=== PATIENT | male | born 1970 | race Caucasian/White ===

== ENCOUNTER 2019-04-18 22:10 | Inpatient (IN) ==
[2019-04-18] MEDS ORDERED: ZOSYN 4.5 GM in NS 100 ML IV ONE (22:30)
[2019-04-18] MEDS ORDERED: VANCOMYCIN 1 GM/NS 1 GM/250 ML IVPB IV ONE (22:30)
[2019-04-18] MEDS ORDERED: TORADOL IV ONE (22:30)
[2019-04-18] MEDS ORDERED: NS 500 ML IV ONE (22:30)
[2019-04-18] MEDS ORDERED: NS 1,000 ML IV ONE ×2 (22:30)
[2019-04-18] MEDS ORDERED: HUMULIN R IV ONE (23:01)
[2019-04-18 23:14] LABS: ALLEN TEST YES; BE 2.5 mmoll (-3.0-3.0); BLOOD TYPE ARTERIAL; HCO3-(ACT) 26.7 mmoll (20.0-26.0); METHB 1.1 % (0.0-1.5); O2(CT) 19.5 mL/dL (15.0-23.0); O2HB 92.5 % (95.0-99.0); PCO2(98.6) 30 mmHg (35-45); PO2(98.6) 67 mmHg (60-100); SAMPLE BLOOD; SAO2 97.1 % (95.0-100.0); pH(98.6) 7.52 (7.35-7.45)
[2019-04-18 23:17] LABS: MODALITY ROOM AIR
[2019-04-18 23:24] LABS: BASO# 0.07 X1000 (0.0-0.2); BASO% 1.7 % (0.0-0.8); EOS# 0.02 X1000 (0.0-0.7); EOS% 0.5 % (0.0-10.0); HEMATOCRIT 41.2 % (42.0-52.0); HEMOGLOBIN 14.6 g/dL (14.0-18.0); INR 1.49; LYMPH# 1.05 X1000 (1.2-3.4); LYMPH% 24.9 % (20.5-51.1); MCH 28.3 PG (27-31); MCHC 35.4 g/dL (33-37); MONO% 9.5 % (1.7-9.3); MPV 12.9 FL (7.4-10.4); NEUT# 2.67 X1000 (1.4-6.5); NEUT% 63.4 % (42.2-75.2); PLT 108 X1000 (130-400); PROTIME 18.3 Seconds (11.0-16.0); RBC 5.15 XMIL (4.7-6.1); RDW 12.7 % (11.5-14.5); WBC 4.21 X1000 (4.8-10.8)
[2019-04-18 23:25] LABS: PTT 40.4 Seconds (22.3-41.8)
[2019-04-18 23:51] LABS: AGAP 13; ALB/GLOB RATIO 0.9; ALKALINE PHOSPHATASE 260 U/L (32-122); BUN 9 mg/dL (8-22); CALCIUM 7.3 mg/dL (8.8-10.2); CHLORIDE 89 mmol/L (98-107); CK PROFILE 280 U/L (24-204); COSMO 263; CREATININE 0.6 mg/dL (0.7-1.2); ESTIMATED GFR > 60; GLUCOSE 358 mg/dL (70-104); POTASSIUM 4.8 mmol/L (3.5-5.1); SODIUM 124 mmol/L (136-145); TCO2 22 mmol/L (25-35); TOTAL PROTEIN 6.4 g/dL (6.3-8.3)
[2019-04-19 00:04] LABS: GOT 5293 U/L (10-34); GPT 3064 U/L (10-44)
[2019-04-19 00:04] LABS: UR AMPHETAMINES QUAL PRESUMPTIVE POSITIVE (NONE DETECT); UR BARBITUATES QUAL NONE DETECTED (NONE DETECT); UR BENZODIAZEPIN QUAL NONE DETECTED (NONE DETECT); UR CANNABINOIDS QUAL NONE DETECTED (NONE DETECT); UR COCAINE QUAL NONE DETECTED (NONE DETECT); UR METHADONE QUAL NONE DETECTED (NONE DETECT); UR OPIATES QUAL NONE DETECTED (NONE DETECT); UR OXYCODONE QUAL NONE DETECTED (NONE DETECT); UR PCP QUAL NONE DETECTED (NONE DETECT)
[2019-04-19 00:11] LABS: BILIRUBIN URINE SMALL (NEGATIVE); BLOOD URINE SMALL (NEGATIVE); COLOR YELLOW; GLUCOSE URINE >1000 mg/dL (NEGATIVE); KETONE URINE 20 mg/dL (NEGATIVE); LEUKOCYTES URINE NEGATIVE (NEGATIVE); NITRITE URINE NEGATIVE (NEGATIVE); PH URINE 6.5; PROTEIN URINE 70 mg/dL (NEGATIVE); SP GRAVITY URINE 1.032; TURBIDITY URINE CLEAR (CLEAR); URINE SOURCE CLEAN CATCH; UROBILINOGEN URINE 3 mg/dL (NORMAL)
[2019-04-19] MEDS ORDERED: NS 250 ML IV ONE (00:14)
[2019-04-19 00:20] LABS: CK INDEX 0.7 (0.0-2.5); CK-MB 1.89 ng/mL (0.0-5.0)
[2019-04-19 00:21] LABS: UR EPITHELIAL CELLS <10 /HPF (<10); URINE BACTERIA NEGATIVE /HPF; URINE RBC <10 /HPF (<10); URINE WBC <10 /HPF (<10)
[2019-04-19 00:21] LABS: ACETONE SERUM NEGATIVE (NEGATIVE)
[2019-04-19 01:01] LABS: URINE CASTS NONE SEEN; URINE CRYSTALS NONE SEEN; URINE SMALL ROUND CELLS NONE SEEN; URINE YEAST NONE SEEN
--- NOTE | 2019-04-19 01:46 | PROVIDER DOCUMENTATION ---
This chart was entered by Malika Palacios Scribe, acting as scribe for Antonio Mendez MD. HPI-Fever - General Chief Complaint: Wound Recheck Stated Complaint: RECHECK/STAPH INFECTION. FEEL'S WEIRD Time Seen by Provider: 04/18/19 22:20 Source: patient, family (niece) Allergies/Adverse Reactions: Patient Allergies Allergy/AdvReac Type Severity Reaction Status Date / Time No Known Allergies Allergy Verified 04/18/19 22:19 Home Medications: Home Medication List Medication Instructions Recorded Confirmed Last Taken Type NK [No Home Medications] 04/18/19 04/18/19 Unknown History - History of Present Illness-Fever Nature of Presenting Problem: pt is a 49 yom brought to the ED by his niece with c/o of fever and confusion. Pt's niece states that he fell the day before [place] and cut his right forearm. Pt come into the ED on 04/16/2019 for treatment of cut and was given both an injection of antibiotic and a prescription for antibiotics to fill. Pt states he is a diabetic and his B/S has been running in the 300s without medication because he cannot afford it. Pt is distressed and agitated. 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 denies: dizziness, nausea, vomiting Similar Symptoms Previously?: No Recently seen or treated by another doctor?: Yes (ED 04/16/2019) Review of Systems - Adult - REVIEW OF SYSTEMS - ADULT Constitutional: reports: chills, fever Eyes: reports: no symptoms reported Ears, Nose, Mouth & Throat: reports: no symptoms reported Cardiovascular: reports: no symptoms reported. denies: chest pain, syncope Respiratory: reports: shortness of breath. denies: cough, dyspnea on exertion, excessive sputum production, pleurisy Gastrointestinal: reports: no symptoms reported Genitourinary: reports: no symptoms reported Musculoskeletal: reports: see HPI, muscle aches Integumentary: reports: skin sores/ulcer Neurological: reports: no symptoms reported Psychiatric: reports: no symptoms reported Endocrine: reports: no symptoms reported Hematologic/Lymphatic: reports: no symptoms reported Allergic/Immunologic: reports: no symptoms reported All Other Systems: Reviewed and Negative Past History - Adult - PAST MEDICAL HISTORY-ADULT Review of Records: reports: Old Records Reviewed, Nursing Assessment Review, Medications Reviewed, Social history reviewed & non-contributory. Major Childhood Illnesses: reports: denies history Cardiovascular: reports: HTN, hyperlipidemia Respiratory: reports: denies history Gastrointestinal: reports: denies history Obstetrical/Gynecological: reports: denies history Genitourinary: reports: denies history Musculoskeletal: reports: denies history Neurological: reports: denies history Endocrine/Immune: reports: Diabetes Diabetes Type: Type 2 Diabetes controlled by:: Diet Other Conditions: reports: denies history - PRIOR SURGERIES/PROCEDURES Surgical/Procedure History: reports: tonsillectomy, other (Urerthral dilation) - IMMUNIZATION STATUS Childhood Immunizations: See Nurse Assessment Flu Vaccine: See Nurse Assessment - FAMILY HISTORY Family History: reviewed, not pertinent - SOCIAL HISTORY Smoking: cigarettes, greater than 1 pack/day Provider spent 3-5 mins advising pt. on dangers of tobacco.: Discussed manners to quit use, and f/u contacts for add'l counseling. Substance Use: other (meth) Alcohol Use Frequency: sober (former use) Living Situation: alone Physical Exam-General - PHYSICAL EXAM-ADULT Initial Vital Signs Reviewed: Yes (Temp 100.2, HR 116) - CONSTITUTIONAL General Appearance: alert, mild distress - EYES Eyes: PERRL/EOMI - HEAD, EARS, NOSE, MOUTH & THROAT HENMT: normocephalic/atraumatic, normal ENT inspection, other (dry mucous membranes) - NECK Neck: non-tender, full range of motion, supple, normal inspection - RESPIRATORY Respiratory: chest non-tender, lungs clear, normal breath sounds, no pleuratic chest pain, no respiratory distress - CARDIOVASCULAR Cardiovascular: normal peripheral pulses, regular rate, rhythm, no edema, no gallop, no JVD, no murmur, tachycardia - GASTROINTESTINAL (ABDOMEN) Abdominal Exam: non tender, soft - LYMPHATIC Lymphatic: no adenopathy - MUSCULOSKELETAL Back Exam: normal inspection, no CVA tenderness, no vertebral tenderness Extremity: normal range of motion, non-tender, normal gait, normal inspection, no pedal edema - SKIN Integumentary: warm/dry, erythema, signs of IVDA, other (open red, draining 1.5 cm x 1.5 cm wound on right forearm, similiar nondraining wounds on both legs that are less red) - NEUROLOGIC Neurologic: time study engineer II-XII nml as tested, grossly normal, no motor/sensory deficits - PSYCHIATRIC Psych/Mental Status: normal thought content, normal thought process, oriented x 3, other (agitated with pressured speech) Progress - PLAN OF CARE/RESULTS Progress/Plan/Lab Results: Vital Signs - 8 hr 04/18/19 22:14 04/18/19 22:29 04/18/19 23:24 Temperature 100.2 F H Pulse Rate 116 H 108 H Respiratory Rate 18 15 Blood Pressure 153/76 131/74 111/69 O2 Sat by Pulse Oximetry 99 96 04/18/19 23:51 04/19/19 00:47 04/19/19 01:20 Temperature Pulse Rate 101 H 92 H 88 Respiratory Rate 18 18 18 Blood Pressure 138/74 130/81 120/71 O2 Sat by Pulse Oximetry 96 96 96 04/18/19 22:11 Influenza Screen - Final Nasopharyngeal Laboratory Results - last 24 hr 04/18/19 04/18/19 04/18/19 22:32 23:01 23:01 WBC 4.21 L RBC 5.15 Hgb 14.6 Hct 41.2 L MCV 80.0 L MCH 28.3 MCHC 35.4 RDW Std Deviation 12.7 Plt Count 108 L MPV 12.9 H Immature Gran % (Auto) 0.0 Neut % (Auto) 63.4 Lymph % (Auto) 24.9 [place] % (Auto) 9.5 H Eos % (Auto) 0.5 Baso % (Auto) 1.7 H Immature Gran # (Auto) 0.00 Neut # (Auto) 2.67 Lymph # (Auto) 1.05 L [place] # (Auto) 0.40 Eos # (Auto) 0.02 Baso # (Auto) 0.07 PT INR PTT (Actin FS) Specimen Type Sample Site pH pCO2 pO2 HCO3 Base Excess Oxyhemoglobin ABG O2 Sat (Calculated) ABG O2 Saturation ABG Carboxyhemoglobin ABG Methemoglobin Abelino Test A-a O2 Difference Total Hemoglobin Lactate Blood Gas Modality FiO2 % Sodium 124 L Potassium 4.8 Chloride 89 L Carbon Dioxide 22 L Anion Gap 13 BUN 9 Creatinine 0.6 L Estimated GFR/1.73 m2 > 60 BUN/Creatinine Ratio 15 Glucose 358 H POC Glucose 330 H Calculated Osmolality 263 Calcium 7.3 L Total Bilirubin 2.70 H AST 5293 H ALT 3064 H Alkaline Phosphatase 260 H Ammonia Creatine Kinase 280 H Creatine Kinase Index 0.7 CK-MB (CK-2) 1.89 Troponin T High Sens Total Protein 6.4 Albumin 3.0 L Globulin 3.4 Albumin/Globulin Ratio 0.9 Plasma Lactate Urine Source Urine Color Urine Turbidity Urine pH Ur Specific [place] Urine Protein Ur Glucose (Stick) Ur Ketones (Stick) Urine Blood Urine Nitrite Urine Bilirubin Urobilinogen Dipstick Urine Leukocytes Urine WBC (Auto) Urine RBC (Auto) U Epithel Cells (Auto) Urine Bacteria (Auto) Urine Crystals Small Round Cells Urine Casts Urine Yeast-like Cells Urine Opiates Screen Ur Oxycodone Screen Ur Methadone, Qual Ur Barbiturates Screen Ur Phencyclidine Scrn Ur Amphetamines Screen U Benzodiazepines Scrn Urine Cocaine Screen U Cannabinoids Screen Plasma/Serum Ethyl Alc Acetone Level NEGATIVE 04/18/19 04/18/19 04/18/19 23:01 23:01 23:01 WBC RBC Hgb Hct MCV MCH MCHC RDW Std Deviation Plt Count MPV Immature Gran % (Auto) Neut % (Auto) Lymph % (Auto) [place] % (Auto) Eos % (Auto) Baso % (Auto) Immature Gran # (Auto) Neut # (Auto) Lymph # (Auto) [place] # (Auto) Eos # (Auto) Baso # (Auto) PT 18.3 H INR 1.49 PTT (Actin FS) 40.4 Specimen Type Sample Site pH pCO2 pO2 HCO3 Base Excess Oxyhemoglobin ABG O2 Sat (Calculated) ABG O2 Saturation ABG Carboxyhemoglobin ABG Methemoglobin Abelino Test A-a O2 Difference Total Hemoglobin Lactate Blood Gas Modality FiO2 % Sodium Potassium Chloride Carbon Dioxide Anion Gap BUN Creatinine Estimated GFR/1.73 m2 BUN/Creatinine Ratio Glucose POC Glucose Calculated Osmolality Calcium Total Bilirubin AST ALT Alkaline Phosphatase Ammonia Creatine Kinase Creatine Kinase Index CK-MB (CK-2) Troponin T High Sens 7 Total Protein Albumin Globulin Albumin/Globulin Ratio Plasma Lactate 1.5 Urine Source Urine Color Urine Turbidity Urine pH Ur Specific [place] Urine Protein Ur Glucose (Stick) Ur Ketones (Stick) Urine Blood Urine Nitrite Urine Bilirubin Urobilinogen Dipstick Urine Leukocytes Urine WBC (Auto) Urine RBC (Auto) U Epithel Cells (Auto) Urine Bacteria (Auto) Urine Crystals Small Round Cells Urine Casts Urine Yeast-like Cells Urine Opiates Screen Ur Oxycodone Screen Ur Methadone, Qual Ur Barbiturates Screen Ur Phencyclidine Scrn Ur Amphetamines Screen U Benzodiazepines Scrn Urine Cocaine Screen U Cannabinoids Screen Plasma/Serum Ethyl Alc Acetone Level 04/18/19 04/18/19 04/18/19 23:01 23:07 23:32 WBC RBC Hgb Hct MCV MCH MCHC RDW Std Deviation Plt Count MPV Immature Gran % (Auto) Neut % (Auto) Lymph % (Auto) [place] % (Auto) Eos % (Auto) Baso % (Auto) Immature Gran # (Auto) Neut # (Auto) Lymph # (Auto) [place] # (Auto) Eos # (Auto) Baso # (Auto) PT INR PTT (Actin FS) Specimen Type ARTERIAL Sample Site L RADIAL pH 7.52 H pCO2 30 L pO2 67 HCO3 26.7 H Base Excess 2.5 Oxyhemoglobin 92.5 L ABG O2 Sat (Calculated) 19.5 ABG O2 Saturation 97.1 ABG Carboxyhemoglobin 3.60 H ABG Methemoglobin 1.1 Abelino Test YES A-a O2 Difference 45.0 Total Hemoglobin 15.0 Lactate 1.30 Blood Gas Modality ROOM AIR FiO2 % 21.0 Sodium Potassium Chloride Carbon Dioxide Anion Gap BUN Creatinine Estimated GFR/1.73 m2 BUN/Creatinine Ratio Glucose POC Glucose Calculated Osmolality Calcium Total Bilirubin AST ALT Alkaline Phosphatase Ammonia Creatine Kinase Creatine Kinase Index CK-MB (CK-2) Troponin T High Sens Total Protein Albumin Globulin Albumin/Globulin Ratio Plasma Lactate Urine Source CLEAN CATCH Urine Color YELLOW Urine Turbidity CLEAR Urine pH 6.5 Ur Specific [place] 1.032 Urine Protein 70 A Ur Glucose (Stick) >1000 A Ur Ketones (Stick) 20 A Urine Blood SMALL A Urine Nitrite NEGATIVE Urine Bilirubin SMALL A Urobilinogen Dipstick 3 A Urine Leukocytes NEGATIVE Urine WBC (Auto) <10 Urine RBC (Auto) <10 U Epithel Cells (Auto) <10 Urine Bacteria (Auto) NEGATIVE Urine Crystals NONE SEEN Small Round Cells NONE SEEN Urine Casts NONE SEEN Urine Yeast-like Cells NONE SEEN Urine Opiates Screen Ur Oxycodone Screen Ur Methadone, Qual Ur Barbiturates Screen Ur Phencyclidine Scrn Ur Amphetamines Screen U Benzodiazepines Scrn Urine Cocaine Screen U Cannabinoids Screen Plasma/Serum Ethyl Alc Acetone Level 04/18/19 04/19/19 04/19/19 23:32 00:56 01:11 WBC RBC Hgb Hct MCV MCH MCHC RDW Std Deviation Plt Count MPV Immature Gran % (Auto) Neut % (Auto) Lymph % (Auto) [place] % (Auto) Eos % (Auto) Baso % (Auto) Immature Gran # (Auto) Neut # (Auto) Lymph # (Auto) [place] # (Auto) Eos # (Auto) Baso # (Auto) PT INR PTT (Actin FS) Specimen Type Sample Site pH pCO2 pO2 HCO3 Base Excess Oxyhemoglobin ABG O2 Sat (Calculated) ABG O2 Saturation ABG Carboxyhemoglobin ABG Methemoglobin Abelino Test A-a O2 Difference Total Hemoglobin Lactate Blood Gas Modality FiO2 % Sodium Potassium Chloride Carbon Dioxide Anion Gap BUN Creatinine Estimated GFR/1.73 m2 BUN/Creatinine Ratio Glucose POC Glucose 215 H Calculated Osmolality Calcium Total Bilirubin AST ALT Alkaline Phosphatase Ammonia 43 Creatine Kinase Creatine Kinase Index CK-MB (CK-2) Troponin T High Sens Total Protein Albumin Globulin Albumin/Globulin Ratio Plasma Lactate Urine Source Urine Color Urine Turbidity Urine pH Ur Specific [place] Urine Protein Ur Glucose (Stick) Ur Ketones (Stick) Urine Blood Urine Nitrite Urine Bilirubin Urobilinogen Dipstick Urine Leukocytes Urine WBC (Auto) Urine RBC (Auto) U Epithel Cells (Auto) Urine Bacteria (Auto) Urine Crystals Small Round Cells Urine Casts Urine Yeast-like Cells Urine Opiates Screen NONE DETECTED Ur Oxycodone Screen NONE DETECTED Ur Methadone, Qual NONE DETECTED Ur Barbiturates Screen NONE DETECTED Ur Phencyclidine Scrn NONE DETECTED Ur Amphetamines Screen PRESUMPTIVE POSITIVE A U Benzodiazepines Scrn NONE DETECTED Urine Cocaine Screen NONE DETECTED U Cannabinoids Screen NONE DETECTED Plasma/Serum Ethyl Alc Acetone Level 04/19/19 01:11 WBC RBC Hgb Hct MCV MCH MCHC RDW Std Deviation Plt Count MPV Immature Gran % (Auto) Neut % (Auto) Lymph % (Auto) [place] % (Auto) Eos % (Auto) Baso % (Auto) Immature Gran # (Auto) Neut # (Auto) Lymph # (Auto) [place] # (Auto) Eos # (Auto) Baso # (Auto) PT INR PTT (Actin FS) Specimen Type Sample Site pH pCO2 pO2 HCO3 Base Excess Oxyhemoglobin ABG O2 Sat (Calculated) ABG O2 Saturation ABG Carboxyhemoglobin ABG Methemoglobin Abelino Test A-a O2 Difference Total Hemoglobin Lactate Blood Gas Modality FiO2 % Sodium Potassium Chloride Carbon Dioxide Anion Gap BUN Creatinine Estimated GFR/1.73 m2 BUN/Creatinine Ratio Glucose POC Glucose Calculated Osmolality Calcium Total Bilirubin AST ALT Alkaline Phosphatase Ammonia Creatine Kinase Creatine Kinase Index CK-MB (CK-2) Troponin T High Sens Total Protein Albumin Globulin Albumin/Globulin Ratio Plasma Lactate 1.4 Urine Source Urine Color Urine Turbidity Urine pH Ur Specific [place] Urine Protein Ur Glucose (Stick) Ur Ketones (Stick) Urine Blood Urine Nitrite Urine Bilirubin Urobilinogen Dipstick Urine Leukocytes Urine WBC (Auto) Urine RBC (Auto) U Epithel Cells (Auto) Urine Bacteria (Auto) Urine Crystals Small Round Cells Urine Casts Urine Yeast-like Cells Urine Opiates Screen Ur Oxycodone Screen Ur Methadone, Qual Ur Barbiturates Screen Ur Phencyclidine Scrn Ur Amphetamines Screen U Benzodiazepines Scrn Urine Cocaine Screen U Cannabinoids Screen Plasma/Serum Ethyl Alc Acetone Level Orders Category Date Time Status Cardiac Monitoring DIRECTED Care 04/18/19 22:28 Active IV Insertion ORDERED Care 04/18/19 22:28 Completed Notify Physician As Ordered Care 04/18/19 22:28 Active Nursing- Obtain EKG once Care 04/18/19 22:30 Active CHEST-2 VIEWS [RAD] Stat Exams 04/18/19 22:[address] ABD/PELVIS W/IV CONT ONLY [CT] Stat Exams 04/19/19 00:04 Taken FOREARM-RIGHT [RAD] Stat Exams 04/18/19 22:29 Taken ABG [RESP] Routine Lab 04/18/19 23:07 Completed ACETONE SERUM [CHEM] Stat Lab 04/18/19 23:01 Completed ALCOHOL BLOOD Stat Lab 04/19/19 00:12 Completed AMMONIA [CHEM] Stat Lab 04/19/19 01:11 Completed BLOOD CULTURE [BLDCUL] Stat Lab 04/18/19 22:51 Results CBC WITH DIFF [HEME] Stat Lab 04/18/19 23:01 Completed CK PROFILE [SP CHEM] Stat Lab 04/18/19 23:01 Completed COMPREHENSIVE METABOLIC PANEL [CHEM] Stat Lab 04/18/19 23:01 Completed Flu Swab [INFLUENZA SCREEN A/B] Stat Lab 04/18/19 22:11 Completed HEPATITIS PROFILE [HH] Stat Lab 04/19/19 01:11 Received LACTATE, PLASMA [CHEM] Lab 04/19/19 01:11 Completed LACTATE, PLASMA [CHEM] Lab 04/19/19 04:30 Uncollected LACTATE, PLASMA [CHEM] Q3H Lab 04/18/19 23:01 Completed PROTIME WITH INR [COAG] Stat Lab 04/18/19 23:01 Completed PTT [COAG] Stat Lab 04/18/19 23:01 Completed ROUTINE CULTURE [RM] Routine Lab 04/19/19 00:16 Received TROPONIN T HIGH SENSITIVITY Stat Lab 04/18/19 23:01 Completed URINALYSIS W/POSS RFLX CULT [URINALYSIS] Stat Lab 04/18/19 23:32 Completed URINE DRUG SCREEN Stat Lab 04/18/19 23:32 Completed URINE MANUAL MICROSCOPIC [URINALYSIS] Stat Lab 04/18/19 23:32 Completed 0.9% Sodium Chloride Inj [Ns] 1,000 ml Med 04/18/19 22:30 Discontinued IV 999 mls/hr 0.9% Sodium Chloride Inj [Ns] 1,000 ml Med 04/18/19 22:30 Discontinued IV 999 mls/hr 0.9% Sodium Chloride Inj [Ns] 250 ml Med 04/19/19 00:14 Discontinued IV 999 mls/hr 0.9% Sodium Chloride Inj [Ns] 500 ml Med 04/18/19 22:30 Discontinued IV 999 mls/hr Insulin Human Regular [Humulin R] Med 04/18/19 23:01 Discontinued 10 unit IV NOW ONE Ketorolac [Toradol] Med 04/18/19 22:30 Discontinued 30 mg IV NOW ONE Piperacillin/Tazobactam [Zosyn] 4.5 gm Med 04/18/19 22:30 Discontinued 0.9% Sodium Chloride Inj [Ns] 100 ml IV NOW Vancomycin 1 gm/Ns Med 04/18/19 22:30 Discontinued 1 gm in 250 ml IV NOW Oxygen Device Stat Oth 04/18/19 22:28 Active EKG [EKG] Stat Ther 04/18/19 22:30 Ordered Result Diagrams: 04/18/19 23:01 04/18/19 23:01 - REASSESSMENT Reassessment #1 Time Reassessed: 00:13 Status: improving (Givne 30ml/kg bolus, admits to shooting up methamphetamines. Likely has severe sepsis with endo organ damage (hepatitis). Will check CT a/p to r/o structural injury/mass to liver of cholecustitis. Will need admisison.) - EKG 1 Time of EKG reading by physician:: 21:28 EKG Read and Signed by:: Antonio Mendez EKG Interpretation (*Must complete 3 of following elements*): Abnormal Rate: 113 Rhythm: Junctimal tachycardia Comments: No STEMI, proloned QT, poor R wave - XRAY 1 XRAY: Right XRAY Study: Forearm Impression: Normal (read by me at [id number] - no fb, no gas, no periosteal elevaion) 2 XRAY Study: Chest Impression: Normal (Read by me at [id number]: Normal, no infiltrates, no PTX, normal cardiac silhouette) - CT/MRI 1 CT Study: Abdomen Impression: Abnormal (Per [facility]: 1. No acute process in abdomen and pelvis, 2. Hepatosplenomegaly. 3. Multiple subcentimeter lymphnodes in abdomen and pelvis. 4. Diverticulosis without diverticulitis) - CONSULTS/PCP/HOSPITALIST Notification #1 *Consult/PCP/Hospitalist*: [place] Time Discussed: 01:43 Consult Disposition: Will see in ED, Admit Departure - Departure Date of Disposition Decision: 04/19/19 Time of Disposition Decision: 01:45 DIAGNOSIS: Severe sepsis without septic shock, Cellulitis of right upper arm, IV drug abuse, Methamphetamine abuse, Hepatitis, Non compliance w medication regimen, Tobacco use disorder Diabetes mellitus, type 2 Qualifiers: Diabetes mellitus terminal gauger insulin use: without [place] [facility] use Diabetes mellitus complication status: with hyperglycemia Qualified Code(s): E11.65 - Type 2 diabetes mellitus with hyperglycemia Disposition: ADMITTED INPATIENT 09 Certified Medical Emergency: Emergent Condition: Fair Referrals and Follow-Ups: None,PCP [Primary Care Provider] - - Critical Care Note This patient required my direct & personal management of CC.: Yes Total Time (mins): 45 Critical Care Statement: This patient required my direct personal management to treat or rule out processes, the absence of which, could potentiallly result in sudden, clinically significant life or limb threatening deterioration. Attestation - Physician/ MELISSA Attestation Patient care was provided by Advanced Practice Provider:: No The physician spent face to face time with patient:: Yes Advanced Practice Provider documentation review:: Supervising physician onsite and consulted in the evaluation and care of this patient. The physician did have a face to face encounter with the patient. This chart was documented by the indicated scribe, (Malika Palacios, Joanie) and accurately reflects the services I performed and decisions made by me, Antonio Mendez MD, as attested by the provider's signature.
[2019-04-19] MEDS ORDERED: NS 1,000 ML IV ONE (02:35)
[2019-04-19] MEDS ORDERED: TYLENOL PO PRN (03:34)
[2019-04-19] MEDS ORDERED: VANCOMYCIN IV PER PHARMACY MISC SCH (03:34)
--- NOTE | 2019-04-19 03:52 | HISTORY AND PHYSICAL ---
PRIMARY CARE PROVIDER: None. REASON FOR ADMISSION: Fever and confusion today. HISTORY: Mr. Flaquito Villegas is a 49-year-old male with uncontrolled type 2 diabetes not on any medications because he says he can't afford it. He reports that 2 days ago he became short of breath to the point that even with mild exertion today he was profoundly dyspneic. He was brought in today by his niece who noted that he was very confused. He also reports that for several months he had been having polyuria and polydipsia. He also had fever and chills during this moment of confusion, and he states that this has been going on for the greater part of 2 days. The patient reports that sometime during he tried to inject some amphetamines in his right elbow, and as a result of this he sustained an area of redness and pain. This was seen in the ER a couple of days ago, and was put on clindamycin when the area of redness got progressively worse. He says since he has been on clindamycin, he says his arm feels a little better, and the pain has improved. However, as I stated earlier, the only reason why he is here because of the intense fever, chills, shortness of breath, and confusion. Since he received 2 L of fluid, his sensorium has improved significantly. The patient denies any other additional GI or complaints. No focal neurological complaints. No chest pain or palpitations. REVIEW OF SYSTEMS: Twelve system review was done and positive for findings per HPI. The patient denies any dark urine, pale stools, or pruritus ALLERGIES: No known allergies. MEDICATIONS: None. PAST SURGICAL HISTORY: Tonsillectomy. 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 FAMILY HISTORY: Notable for diabetes and coronary artery disease in first- degree relatives. SOCIAL HISTORY: He stopped injecting amphetamines from Abhijit of last year. He used to abuse OxyContin a couple of years ago up until he relapsed by using IV amphetamines. Currently, he lives with his father in law. Reportedly, he is not using any more illicit drugs. He does smoke 1 to 2 packs a day. No alcohol. LABORATORY AND DIAGNOSTICS: CT scan of the abdomen was done which showed hepatosplenomegaly, and multiple subcentimeter lymph nodes in the abdomen and pelvis and diverticulosis, but no inflammatory changes. Chest film shows no infiltrate. White count 4000, hemoglobin and hematocrit 14 and 41, and platelets 108,000. Sodium is 124, but the glucose is 368, corrected will be closer to 130. BUN is 9, creatinine 0.6, calcium 7.3. AST is 5200. ALT is 3000, alkaline phosphatase 260, ammonia is 43, CK 280, albumin is 3, and lactate 1.4. PT is 18. INR is 1.5. PTT 40. UDS is positive for amphetamines. Urinalysis positive for 70 protein, glucose greater than 1000, small bilirubin and urobilinogen. Blood gas pH 7.52, pCO2 30, PO2 67 on room air. Flu swab was negative. Forearm x-ray was unremarkable. PHYSICAL EXAMINATION: GENERAL: He is a middle-aged man who is slightly drowsy, but alert and oriented x3. Normal mood and affect. Follows commands appropriately. VITAL SIGNS: Blood pressure 116/61, heart rate 87, respiratory rate 21, temperature is 98.4, and 98% on room air. He is a middle-aged, slightly overweight white male in no acute distress. HEENT: Head is normocephalic and atraumatic. Eyes: KEITH, EOMI. He mildly icteric but not pale. ENT for exam is notable for moderate xerostomia. No exudates or erythema. No cyanosis. NECK: Supple. No JVD or carotid bruit. No thyromegaly. Good skin turgor. CHEST: Clear when auscultated. Good air entry both lung chamberlain. CARDIOVASCULAR: First and second sounds heard. No gallops, murmurs, or rubs. Regular. ABDOMEN: Protuberant, soft, and nontender. No organomegaly. Bowel sounds are normal. RECTAL: Exam deferred at this time. EXTREMITIES: The patient has old healing about 1 to 2 cm raised erythematous area with presumably a ruptured abscess which is not exhibiting any discharge on his right elbow area. It is mildly tender, but not fluctuant. He also has an older what I believe to be another abscess chronically ruptured. No exudation about 1 x 2 cm in the thenar aspect of his left hand. No surrounding erythema on either aforementioned swelling. Good distal pulses. No edema, but he has grade 1 clubbing. No peripheral cyanosis. NEUROLOGICAL: No asterixis or myoclonus. No focal deficits. SKIN: There are numerous bruises on his lower extremities. These bruises could also represent falls or could be injection sites, but he denies the latter. MUSCULOSKELETAL: Exam is grossly normal. ASSESSMENT: 1. Sepsis probably secondary to soft tissue infection, cannot rule out endocarditis. 2. Acute hepatitis, could be related to medications i.e. clindamycin or viral process. 3. Hyponatremia secondary to hypertonic hypovolemic hyponatremia from uncontrolled type 2 diabetes. 4. Uncontrolled type 2 diabetes. 5. Thrombocytopenia, could be related to underlying liver disease. 6. Mild but improving encephalopathy probably secondary to depleted intravascular volume and/or sepsis. PLAN: The patient will be continued on vancomycin for presumptive infectious endocarditis from IV drug abuse, likely MRSA or from coag-negative strep. This will also be used to cover for skin infections. We have added on Rocephin for broad coverage for gram negatives, and for in case patient has underlying MSSA infection from injection. The patient is a poorly- controlled diabetic, and will benefit exclusively from insulin since he is poorly controlled, and will try and discharge him [facility] [employer] [facility] We will get dietitian to see patient. Regarding acute hepatitis, I suspect this could be a combination of viral and/or drugs i.e. clindamycin, and we will trend transaminases. The patient does have hepatosplenomegaly. Alternative diagnosis i.e. lymphoproliferative disorder will also need to be entertained although I doubt this will cause this degree of transaminitis. Repeat blood cultures. Order an echocardiogram, both of these to rule out endocarditis. cc: Chyna Robison MD MTDD
[2019-04-19] MEDS: LOVENOX SUBQ SCH (04:41)
[2019-04-19] MEDS: POTASSIUM CHLORIDE 10 MEQ in NS 1,000 ML IV SCH ×2 (04:56→17:09)
--- NOTE | 2019-04-19 05:37 | Diag Imaging Result Doc PS360 ---
EXAM: CHEST-2 VIEWS HISTORY: short of breath, fever TECHNIQUE: Two views COMPARISON: None. FINDINGS: The lungs are well expanded. The heart is not enlarged. The vessels are not distended. There are no infiltrates. No pleural effusions. IMPRESSION: No acute abnormality. Electronically signed by Peter Wynn 04/19/2019 5:35 AM
--- NOTE | 2019-04-19 05:42 | Diag Imaging Result Doc PS360 ---
EXAM: FOREARM-RIGHT HISTORY: injury with infection TECHNIQUE: Two views COMPARISON: None. FINDINGS: No fracture. No dislocation. No other bony abnormality. IMPRESSION: No acute bony injury. Electronically signed by Peter Wynn 04/19/2019 5:40 AM
[2019-04-19] MEDS: HUMALOG SUBQ SCH ×4 (06:07→21:10)
[2019-04-19] MEDS: ROCEPHIN 2 GM in NS 50 ML IV SCH (06:07)
--- NOTE | 2019-04-19 06:54 | EKG Report ---
Test Performed on : 04/18/2019 10:40:08 PM Test Reason : sepsis Blood Pressure : / mmHG Vent. Rate : 113 BPM Atrial Rate : 107 BPM P-R Int : 000 ms QRS Dur : 108 ms QT Int : 380 ms P-R-T Axes : 000 028 049 degrees QTc Int : 521 ms Accelerated Junctional rhythm. with retrograde conduction. Prolonged QT Abnormal ECG When compared with ECG of 18-APR-2019 22:39, (Unconfirmed) No significant change was found Unconfirmed Result
--- NOTE | 2019-04-19 07:11 | Diag Imaging Result Doc PS360 ---
EXAM: CT ABD/PELVIS W/IV CONT ONLY 04/19/2019 HISTORY: sepsis, elevated LFTs TECHNIQUE: This exam was performed using automated exposure control, adjustment of mA or kV according to patient size, and/or use of iterative reconstruction technique. COMMENT: There are no previous studies. There is no evidence of acute disease in the visualized portion of the chest. The liver is slightly hypodense suggesting fatty change. There is some thickening of the medial lobe of the left adrenal gland which may be due to a small adenoma. The spleen is enlarged measuring over 16 cm in superior-inferior dimension. There are prominent gastrohepatic celiac and periportal nodes. One of the latter exceeds 2.1 cm. The possibility of hepatitis cannot be excluded. There are no gallstones. The pancreas is unremarkable in appearance. There is some stool in the colon without evidence of dilatation. The small bowel is not distended. There are atherosclerotic calcifications in the distal aorta and iliac arteries. There is no evidence of aneurysm. There is no evidence of hydronephrosis. There is a 2.3 cm cyst anteromedially in the right kidney. Pelvis: The appendix is normal in appearance. There is no evidence of diverticulitis. There is no free fluid. The urinary bladder is not distended. There are some prominent external iliac nodes bilaterally with the right node measuring almost 17 mm in long axis. IMPRESSION: Hepatic steatosis versus cirrhosis with splenomegaly. Adenopathy as described. Electronically signed by Flaquito Almanzar 04/19/2019 7:08 AM
[2019-04-19] MEDS: VANCOMYCIN 2,000 MG in NS 500 ML IV SCH ×2 (08:28→21:10)
--- NOTE | 2019-04-19 08:39 | Diag Imaging Result Doc PS360 ---
EXAM: CT ANGIOGRM PULMONARY ARTERIES 04/19/2019 HISTORY: dyspnea, hyperventilating. elevated dimer.IV drugs TECHNIQUE: This exam was performed using automated exposure control, adjustment of mA or kV according to patient size, and/or use of iterative reconstruction technique. COMMENT: 3-D MIPS were performed. There are no previous studies. There are no filling defects in the pulmonary arteries. There are some coronary calcifications particularly in the left anterior descending artery. There are some periportal and celiac adenopathy and there is a right paratracheal node on image 30 measuring 16 x 10 mm. There is minimal dependent atelectasis. The regional skeleton appears to be intact. IMPRESSION: No evidence of pulmonary emboli. Electronically signed by Flaquito Almanzar 04/19/2019 8:37 AM
--- NOTE | 2019-04-19 09:13 | ECHO REPORT ---
ORDER DATE: 04/19/2019 INTERPRETING PHYSICIAN: James Dowell MD. INDICATIONS: Intravenous drug abuser, fever. M-MODE MEASUREMENTS: Left ventricle end diastole: 5.4 cm. Left ventricle end systole: 4.4 cm. Posterior wall: 0.9 cm. Interventricular septum: 1.0 cm. Left atrium: 3.9 cm. Aortic diameter: 4.1 cm. SUMMARY OF 2-DIMENSIONAL IMAGIN. Left ventricular function is normal, ejection fraction 62%. No wall motion abnormality is noted. 2. The right ventricle is normal. 3. The aortic valve looks normal. Color flow mapping unremarkable. 4. The mitral valve looks normal. Color flow mapping unremarkable. 5. Pulse wave Doppler of mitral inflow is normal. 6. Tissue Doppler of septal and lateral mitral annulus averages 15 cm. 7. There is no diastolic dysfunction. 8. The tricuspid valve looks normal. Color flow mapping unremarkable. 9. Pulmonary pressure is estimated at 30 mmHg. 10.The pulmonic valve is normal. Color flow mapping unremarkable. 11.There is no pericardial effusion, no mass, and no thrombus. SUMMARY: This echocardiographic study appears to be grossly within normal range. Clinical correlation is recommended. cc: MD Chyna Lao MD
[2019-04-19] MEDS: HUMULIN 70/30 SUBQ SCH ×2 (09:32→17:11)
[2019-04-19 11:25] LABS: CHOLESTEROL 107 mg/dL (0-200); HDL 21 mg/dL (35-55); LDL 55 mg/dL; TRIGLYCERIDES 154 mg/dL (39-160); VLDL 31 mg/dL
--- NOTE | 2019-04-19 17:13 | PROGRESS NOTE ---
DATE: 04/19/2019 INTERVAL HISTORY: The patient with no further dyspnea. Right forearm/elbow pain improving. Some concern for pulmonary embolus given dyspnea, hyperventilation, significantly elevated D-dimer, and limb swelling, but CTA negative for clot. Right arm swelling markedly improved. The patient with no further dyspnea. Echocardiogram also essentially unremarkable. Continue antibiotics for right forearm cellulitis and awaiting hepatitis panel for significantly elevated LFTs. The patient counseled on avoidance of illicit substances. CT abdomen and pelvis showed fatty liver versus early cirrhosis. This may have some chronic chronicity to his hepatitis as well, which would line up with his thrombocytopenia.
[2019-04-19] MEDS ORDERED: HUMULIN 70/30 SUBQ SCH (21:00)
[2019-04-20] MEDS: ROCEPHIN 2 GM in NS 50 ML IV SCH (05:24)
[2019-04-20] MEDS: POTASSIUM CHLORIDE 10 MEQ in NS 1,000 ML IV SCH ×3 (05:24→17:55)
[2019-04-20] MEDS: HUMALOG SUBQ SCH ×4 (06:08→20:41)
[2019-04-20 07:48] LABS: BASO# 0.05 X1000 (0.0-0.2); BASO% 1.1 % (0.0-0.8); EOS# 0.03 X1000 (0.0-0.7); EOS% 0.6 % (0.0-10.0); HEMATOCRIT 37.4 % (42.0-52.0); LYMPH# 0.93 X1000 (1.2-3.4); LYMPH% 19.6 % (20.5-51.1); MCH 28.6 PG (27-31); MCHC 34.8 g/dL (33-37); MCV 82.2 FL (81-99); MONO# 0.46 X1000 (0.11-0.59); MONO% 9.7 % (1.7-9.3); MPV 13.4 FL (7.4-10.4); NEUT# 3.27 X1000 (1.4-6.5); PLT 105 X1000 (130-400); RBC 4.55 XMIL (4.7-6.1); RDW 12.7 % (11.5-14.5); WBC 4.74 X1000 (4.8-10.8)
[2019-04-20 08:06] LABS: AGAP 11; ALB/GLOB RATIO 0.7; ALBUMIN 2.3 g/dL (3.5-5.0); ALKALINE PHOSPHATASE 200 U/L (32-122); BUN 5 mg/dL (8-22); CHLORIDE 93 mmol/L (98-107); COSMO 259; CREATININE 0.4 mg/dL (0.7-1.2); ESTIMATED GFR > 60; GLUCOSE 121 mg/dL (70-104); GOT 5352 U/L (10-34); GPT 3771 U/L (10-44); MAGNESIUM 1.7 mg/dL (1.5-2.7); SODIUM 130 mmol/L (136-145); TCO2 26 mmol/L (25-35); TOTAL BILIRUBIN 3.52 mg/dL (0.20-1.00); TOTAL PROTEIN 5.7 g/dL (6.3-8.3)
[2019-04-20 08:09] LABS: INR 1.91; PROTIME 22.3 Seconds (11.0-16.0)
[2019-04-20 08:40] LABS: BANDS 6 % (0-1); EOS 2 % (1-10); LYMPHS 22 % (21-51); MONO 4 % (1-9); SEGS 66 % (42-75)
[2019-04-20] MEDS: VANCOMYCIN 2,000 MG in NS 500 ML IV SCH (11:17)
[2019-04-20 11:18] LABS: HEPATITIS PROFILE ACUTE SEE COMMENTS
[2019-04-20] MEDS: HUMULIN 70/30 SUBQ SCH ×2 (11:20→17:56)
[2019-04-20] MEDS: TUMS PO SCH ×3 (11:21→17:56)
[2019-04-20] MEDS: LOVENOX SUBQ SCH (11:21)
[2019-04-20] MEDS: MAGNESIUM SULFATE 2 GM/S.W.I. 2 GM/50 ML IVPB IV SCH ×2 (14:48→17:57)
[2019-04-20] MEDS: KLOR-CON PO SCH ×2 (14:48→17:57)
--- NOTE | 2019-04-20 16:32 | PROGRESS NOTE ---
DATE: 04/20/2019 INTERVAL HISTORY: No acute events overnight. He has not had any fever episode in the last 24 hours. SUBJECTIVE: Mr. Villegas is feeling better. He denies any chest pain, shortness of breath. He has occasional nausea without any vomiting. We discussed about improving electrolytes. We discussed about sepsis due to cellulitis. We also discussed about hepatitis A. The patient's nurse is at bedside. I discussed with him about pathophysiology of hepatitis A, roots of transmission. I also counseled him that he should notify his close contacts including family members and sexual contacts about the fact that he was diagnosed with hepatitis A, and that his close contacts should be screened for hepatitis A and possibly receive vaccination, as well as immunoglobulin. He understood it. VITALS: Temperature 98.1 degrees, pulse 90, respiratory rate 20, blood pressure 128/69, saturating 98% on room air. OBJECTIVE: General: On physical examination, not in any acute distress. HEENT: Oral cavity is moist. Lungs: Air entry bilaterally equal. No wheeze, rhonchi, crackles. Cardiovascular: S1, S2 normal. No murmur or gallop. Abdomen: Soft. Mild right upper quadrant tenderness. Active bowel sounds. Abdomen is tympanic to percussion Extremities: He has bilateral lower extremity edema. Neurologic: He is alert and oriented x3. There is no icterus. LABS: Suggestive of WBC of 4.7, hemoglobin of 13, platelet count of 105. He does have elevated INR of 1.9. His hyponatremia/hypochloremia is improving. His kidney function is normal. His blood glucose is within acceptable range. He continues to have worsening liver function test. Hepatitis panel has suggested positive hepatitis A. MICROBIOLOGY: No positive data. IMAGING: No new imaging. Yesterday, pulmonary arteriogram did not have any evidence of pulmonary emboli. ASSESSMENT AND PLAN: 1. Sepsis and acute encephalopathy likely in the setting of right forearm cellulitis. Echocardiogram did not detect valvular vegetation to suggest endocarditis. Blood culture has been negative, though he was taking oral clindamycin before presentation. Continue intravenous vancomycin and intravenous cefepime. His right forearm cellulitis appears to have been improving. There is no erythema around the extensor aspect of right forearm. 2. Acute hepatitis A. The patient denies any known fecal oral exposure, though he did eat outside at his neighbor's house recently. He denies any close family contacts being diagnosed with hepatitis A. He certainly has risk factor of intravenous drug use, which could be potentially contributing in his case. I will start him on intravenous fluid resuscitation. I will follow up with liver function test, including platelet count, INR and albumin levels tomorrow to make sure he is not developing fulminant hepatic failure. I will also get ultrasound of the abdomen to rule out any choledocholithiasis or cholecystitis since he does have mild tenderness in right upper quadrant. 3. Hyponatremia, hypochloremia, hypokalemia likely due to poor oral intake and diarrhea prior to current admission. He improved and I will replete his potassium and start him on intravenous fluid resuscitation. 4. Uncontrolled diabetes mellitus type 2. Because of cost, I will continue him on current dose of NPH 70/30 insulin. His hemoglobin A1c was 11. 5. Sepsis due to right forearm cellulitis and acute encephalopathy related to sepsis, now improved. He has not had any fever episode in the last 24 hours. 6. Others. Continue enoxaparin for deep venous thrombosis prophylaxis, calcium carbonate for hypocalcemia, magnesium supplementation for hypomagnesemia. DISPOSITION: I will continue to monitor patient inside the hospital as I monitor his mental status and course. Based on that, I will anticipate discharge home in near future if his liver function tests remain stable. Plan of care discussed with him. He was again extensively counseled about informing his close contacts and family members about diagnosis of hepatitis A, and screening and possibly receiving hepatitis A vaccine as well as immunoglobulins. He understood it. The patient's nurse is at bedside. cc: Jeffrey Macias MD
--- NOTE | 2019-04-20 17:53 | Diag Imaging Result Doc PS360 ---
EXAM: US GB < RUQ (LIMITED) 04/20/2019 HISTORY: Evaluate for Cholecystitis/choledocholithiasis TECHNIQUE: Right upper quadrant ultrasound COMMENT: The visualized portions of the aorta and inferior vena cava are within normal limits. The liver is slightly hyperechoic. The gallbladder wall is thickened and edematous in appearance. There is a positive sonographic Sultana sign. There are multiple fixed echoes within the gallbladder. The common bile duct is nondistended measuring 5 mm. The right kidney is without evidence of hydronephrosis or mass. There is a 3.2 cm cyst in the right kidney. IMPRESSION: The possibility of cholecystitis cannot be excluded. Gallbladder polyposis. Hepatic steatosis. Electronically signed by Flaquito Almanzar 04/20/2019 5:50 PM
[2019-04-20] MEDS: NS 1,000 ML IV SCH (17:56)
[2019-04-20] MEDS: NICODERM PATCH TD SCH (20:42)
[2019-04-21] MEDS: VANCOMYCIN 2,000 MG in NS 500 ML IV SCH ×3 (00:24→16:30)
[2019-04-21] MEDS: ZOFRAN IV PRN ×2 (00:29→09:03)
[2019-04-21] MEDS: ROCEPHIN 2 GM in NS 50 ML IV SCH (05:31)
[2019-04-21] MEDS: HUMALOG SUBQ SCH ×4 (06:34→21:07)
[2019-04-21 08:27] LABS: INR 1.93; PROTIME 22.5 Seconds (11.0-16.0)
[2019-04-21 08:35] LABS: ESTIMATED GFR > 60
[2019-04-21] MEDS: HUMULIN 70/30 SUBQ SCH ×2 (08:51→17:24)
[2019-04-21] MEDS: NICODERM PATCH TD SCH (08:54)
[2019-04-21] MEDS: TUMS PO SCH ×3 (08:54→17:24)
[2019-04-21] MEDS: LOVENOX SUBQ SCH (08:54)
[2019-04-21 09:22] LABS: AGAP 8; ALB/GLOB RATIO 0.7; ALBUMIN 2.1 g/dL (3.5-5.0); ALKALINE PHOSPHATASE 173 U/L (32-122); BUN 4 mg/dL (8-22); CHLORIDE 95 mmol/L (98-107); COSMO 260; CREATININE 0.4 mg/dL (0.7-1.2); GLUCOSE 144 mg/dL (70-104); GOT 2496 U/L (10-34); GPT 2755 U/L (10-44); MAGNESIUM 1.9 mg/dL (1.5-2.7); POTASSIUM 3.3 mmol/L (3.5-5.1); SODIUM 130 mmol/L (136-145); TCO2 27 mmol/L (25-35); TOTAL BILIRUBIN 4.27 mg/dL (0.20-1.00); TOTAL PROTEIN 5.3 g/dL (6.3-8.3)
[2019-04-21] MEDS ORDERED: VITAMIN K 10 MG in NS 50 ML IV ONE (11:35)
[2019-04-21] MEDS: PEPCID IV SCH ×2 (11:49→22:02)
[2019-04-21] MEDS: KLOR-CON PO SCH ×2 (11:49→16:29)
[2019-04-21] MEDS: NS 1,000 ML IV SCH (11:52)
--- NOTE | 2019-04-21 14:00 | PROGRESS NOTE ---
DATE: 04/21/2019 INTERVAL HISTORY: No acute events overnight. SUBJECTIVE: Mr. Villegas is feeling the same. Denies any chest pain, shortness of breath. He is occasionally feeling nauseous. He has not had any vomiting. He had a bowel movement. He denies any unusual abdominal pain. We discussed about hepatitis A, his liver function tests. We discussed about pulmonary and hepatic failure. Discussed about keeping a close eye over his gallbladder. I answered all of his questions. OBJECTIVE: Vital Signs: Temperature 98.2 degrees, pulse 87, respiratory rate 20, blood pressure 120/60, saturating 98% on room air. General: He is not in acute distress. HEENT: Oral cavity is moist. Lungs: Air entry bilaterally equal. No wheeze, rhonchi, crackles. Cardiovascular: S1, S2 normal. No murmur or gallop. Abdomen: Obese, soft, distended. Mild generalized tenderness, especially around periumbilical region. Active bowel sounds. Extremities: He has mild bilateral lower extremity edema. Neurologic: He is alert and oriented x3. LABORATORY DATA: Suggestive of no CBC today. BMP suggestive of improvement in potassium. He continues to have hyponatremia, hypochloremia. He has normal kidney function. Hypocalcemia is stable. His INR is increasing. Albumin is decreasing. His liver function tests appear to have reached a plateau. MICROBIOLOGY: No positive data. Culture from the right arm is only growing coagulase-negative Staphylococcus. IMAGING: Abdomen ultrasound: Possibility of cholecystitis could not be excluded. There was polyposis in the gallbladder, and hepatic steatosis. ASSESSMENT AND PLAN: 1. Sepsis and acute encephalopathy on presentation due to right forearm cellulitis, now improved. He is alert and oriented x3. He has not had any fever, and he is not tachycardic. Change antibiotics to intravenous Unasyn as the culture data has been negative, his right forearm erythema has significantly decreased, and the wound on the right forearm is getting better. 2. Acute hepatitis A with intravenous drug use being the risk factor. Continue to trend liver function tests. Considering he has increasing INR, I will stop enoxaparin, and give him intravenous vitamin K as well as banana bag, and closely follow liver function tests. Gastroenterology team has been consulted for further recommendations. 3. Suspected cholecystitis. He does have mild tenderness in right upper quadrant region, without rebound or very definitive Sultana's sign at the moment. Though ultrasound has gallbladder thickening, there were no gallstones. He does not have any specific postprandial symptoms. I will monitor him for worsening abdominal pain, as well as liver function tests. 4. Hyponatremia, hypochloremia, hypokalemia. Currently being repleted. Continue intravenous fluid resuscitation. 5. Uncontrolled diabetes mellitus type 2, now insulin-dependent. Continue current dose of insulin, NPH 70/30. His hemoglobin A1c was 11. 6. History of intravenous amphetamine use. He was counseled about not using any intravenous medications. I will give him intravenous banana bag because of prior history of alcohol abuse, though he only drinks occasionally at the moment. 7. Disposition. I will continue to monitor the patient in the hospital. Plan of care discussed with him. His questions have been answered. cc: Jeffrey Macias MD
[2019-04-21] MEDS: M.V.I.-12 10 ML, FOLIC ACID 1 MG, MAGNESIUM SULFATE 1 GM, THIAMINE 100 MG in NS 1,000 ML IV SCH (14:15)
[2019-04-21] MEDS: MIRALAX PO SCH ×2 (14:16→22:02)
--- NOTE | 2019-04-21 14:37 | GASTROENTEROLOGY CONSULTATION ---
DATE: 04/21/2019 ADMITTING PHYSICIAN: Dr. Macias. PRIMARY CARE DOCTOR: None. REASON FOR CONSULTATION: Acute hepatitis A and elevated liver enzymes. HISTORY OF PRESENT ILLNESS: Mr. Villegas is 49-year-old male who was admitted on 04/19/2019 for confusion and fever, patient has history of IV drug abuse. He had injected drugs around [place]. He has shared needles in the past. During this admission he was being treated for fever and confusion, on lab work he was noted to have elevated liver enzymes. His AST was 5200, ALT of 3000, alkaline phos 260 on admission, his INR 1.5. His urine tox screen positive for amphetamine. Over the last 48 hours his liver enzymes trending down. His bilirubin is going up. His INR is gone up to 1.9. Gastroenterology consulted further management. 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 He also has been complaining of some shortness of breath and polyuria, polydipsia and has been treated for possible sepsis and endocarditis per the primary team. The patient also has uncontrolled type 2 diabetes and thrombocytopenia which is being watched primary care team. His mental status has slowly started to improve. He is continuing antibiotics per the hospitalist team. PAST MEDICAL HISTORY: Of uncontrolled type 2 diabetes, obesity, IV drug abuse, cellulitis in the right elbow from IV drug abuse had been seen in the ER, was given oral antibiotics. 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 FAMILY HISTORY: Significant diabetes and coronary disease in first-degree relatives. SOCIAL HISTORY: Stopped injecting amphetamine on [place] last year. He used to abuse OxyContin a couple years ago until he relapsed by using IV amphetamines. Currently lives with his [id number]. He is currently not using any illicit drugs, he smokes 1 to 2 packs a day, denies history alcohol abuse. Used to work in construction and had a hip injury and since then has not worked for few months. ALLERGIES: No known drug allergies. MEDICATIONS IN THE HOSPITAL: Include Tylenol, multivitamin once daily, Tums, Pepcid b.i.d., Humalog, Humulin 70/30 and Humalog sliding scale, NicoDerm patch, IV normal saline 75 per hour and Zofran and vancomycin per pharmacy, vitamin K given 1 dose, potassium repletion, ceftriaxone once daily and vancomycin q.12. He is currently on diabetic diet, Glucerna shakes . REVIEW OF SYSTEMS: Denies any current fever, rigors or chills, chest pain, shortness of breath, dyspnea. Patient has nausea, vomiting with passing melena stools, he had confusion on admission and fevers which have now improved antibiotics. He is being worked up for sepsis and possible endocarditis. Denies any current neurological complaints. PHYSICAL EXAM: Temperature 98.2 degrees, pulse rate of 87, respiratory 20, saturating 90% room air, body weight of 233 pounds 6.4 ounces BMI of 33.5 kg. Patient is obese lying in bed in no acute distress.HEENT: Mild pallor, positive icterus. Pupils equal, react to light. Neck: Supple. Abdomen: Obese, soft, mild discomfort epigastrium. No rebound, no guarding. Extremities: No cyanosis, clubbing. Neuro: He is alert answers all questions. LABS: Hemoglobin and hematocrit is 13 and 37.4, white count of 4.74, platelet count 105,000 INR 1.93, PT of 22.5, PTT of 40.4, sodium 130, potassium 3.3, chloride 95, bicarb 27, anion of 8, BUN of 4, creatinine 0.4, glucose of 144, calcium is 7, magnesium 1.9, total bili is 4.27, direct of 3.7, AST 2496, ALT 2755, alkaline phos 173, total protein is 5.3, albumin of 2.1. Urinalysis showing positive protein, positive glucose, positive ketones and small bilirubin, urine tox screen positive for amphetamines, hepatitis panel is positive for hepatitis A viral antibody IgM type. He had ultrasound done of the abdomen done on 20 April which showed gallbladder polyposis, gallbladder wall is thickened adenomatous in appearance, the liver is slightly hyperechoic, there is a positive sonographic Sultana sign the bile duct measuring 5 mm. There is 3.2 cm cyst in the right kidney and hepatic steatosis. CT scan of the abdomen pelvis done on 04/19 showed hepatic steatosis versus cirrhosis with splenomegaly, adenopathy as described. IMPRESSION: 1. Jaundice. 2. Elevated liver enzymes . 3. Imaging CT scan showing evidence of hepatic steatosis versus cirrhosis with splenomegaly. 4. Evidence of gallbladder polyps on ultrasound. 5. Renal cyst seen on ultrasound. 6. Sepsis likely from cellulitis and currently being treated with antibiotics. Workup in the hospital has shown no evidence of any vegetations in the heart suggesting endocarditis. 7. Acute hepatitis A. 8. Drug abuse. 9. Hyponatremia, hypokalemia. 10. Uncontrolled type 2 diabetes. RECOMMENDATIONS: Will continue to monitor the patient's liver enzymes, will give vitamin K 10 dose, will check his liver enzymes and INR tomorrow morning. Will check Chronic liver disease work up. He will continue on IV fluids, will start on banana bag once daily, he will also start on Pepcid 20 mg IV twice daily. His diabetes being controlled by primary team. He is on NicoDerm patch for history of smoking, patient counseled about quitting intravenous drug abuse completely, he was also counseled to quit smoking, he will continue on Zofran as needed, he is on antibiotics with vancomycin and ceftriaxone per the primary team for sepsis likely from forearm cellulitis; Patient had no evidence of endocarditis on imaging. Patient is counseled to lose weight. He could have fatty liver, early cirrhosis that should hopefully improve with losing weight . Will follow along. The above plan of care discussed with patient and the primary care team and all questions answered, also spoke with Dr. Macias. Please call with any further questions. cc: MD Dr. Gilberto Brannon
[2019-04-21] MEDS: UNASYN 1.5 GM/NS 1.5 GM/50 ML IVPB IV SCH ×2 (16:31→22:02)
[2019-04-22] MEDS: ROCEPHIN 2 GM in NS 50 ML IV SCH (05:32)
[2019-04-22] MEDS: UNASYN 1.5 GM/NS 1.5 GM/50 ML IVPB IV SCH ×4 (05:33→23:32)
[2019-04-22] MEDS: HUMALOG SUBQ SCH ×3 (06:01→16:05)
[2019-04-22 08:21] LABS: INR 1.42; PROTIME 17.6 Seconds (11.0-16.0)
[2019-04-22] MEDS: NICODERM PATCH TD SCH (08:40)
[2019-04-22] MEDS: HUMULIN 70/30 SUBQ SCH ×2 (08:40→16:52)
[2019-04-22] MEDS: MIRALAX PO SCH ×2 (08:40→20:48)
[2019-04-22] MEDS: TUMS PO SCH ×4 (08:41→16:52)
[2019-04-22] MEDS: SODIUM CHLORIDE 0.9% INJ SCH ×2 (08:41→20:48)
[2019-04-22] MEDS: PEPCID IV SCH ×3 (08:42→20:48)
[2019-04-22] MEDS: NS 1,000 ML IV SCH (08:44)
[2019-04-22 09:01] LABS: AGAP 8; ALB/GLOB RATIO 0.7; ALBUMIN 2.1 g/dL (3.5-5.0); BUN 3 mg/dL (8-22); CALCIUM 7.2 mg/dL (8.8-10.2); CHLORIDE 98 mmol/L (98-107); COSMO 261; CREATININE 0.3 mg/dL (0.7-1.2); DIRECT BILIRUBIN 5.2 mg/dL (0.00-0.20); ESTIMATED GFR > 60; GLUCOSE 136 mg/dL (70-104); POTASSIUM 4.5 mmol/L (3.5-5.1); SODIUM 131 mmol/L (136-145); TCO2 25 mmol/L (25-35); TOTAL BILIRUBIN 5.99 mg/dL (0.20-1.00); TOTAL PROTEIN 5.3 g/dL (6.3-8.3)
--- NOTE | 2019-04-22 09:49 | GASTROENTEROLOGY PROGRESS NOTE ---
DATE: 04/22/2019 SUBJECTIVE: Patient resting in bed. He is feeling better. He is eating better. His appetite is improved. He had a hard bowel movement yesterday. PHYSICAL EXAMINATION: Vitals: Temperature 98.1 degrees, pulse of 83, respiratory rate 16, blood pressure 122/77 saturating 100% room air. Body weight of 233 pounds 6.4 ounces. BMI 33.5 kg/m2 General: Obese lying in bed, in no acute distress. HEENT: Mild pallor, icterus sclerae. Pupils equal, reactive to light. Neck: Supple. Abdomen: Obese soft, nontender, nondistended. No guarding. Extremities: No cyanosis, clubbing. Neurologic: Alert, awake, oriented. LABS: INR 1.42 PT of 17.6. Rest of his labs are currently pending. The glucose 77. Hepatitis panel is positive acute hepatitis A. IMPRESSION AND PLAN: 1. Sepsis and acute encephalopathy secondary to right forearm cellulitis now has improved. He is on antibiotics per the primary team. 2. Acute hepatitis A with history of IV drug abuse. The patient is counseled about quitting IV drug abuse completely. We will continue to follow up his liver enzymes and INR. His INR is improving. His hepatitis is improving. Clinically he is better. 3. Suspected cholecystitis. This will be managed symptomatically at the moment. He is on antibiotics. If his abdominal pain or jaundice worsens then may need a surgery consult. 4. Elevated liver enzymes. We will check chronic liver disease workup. 5. Electrolyte imbalance. He is on IV fluids. He has uncontrolled type 2 diabetes. Currently being managed by primary team. 6. History of intravenous methamphetamine use. Patient counseled about quitting. 7. Possible liver cirrhosis based on CT scan and imaging. The patient does acknowledge a history of heavy alcohol abuse in the past but has quit now. He only drinks socially. The patient counseled to quit alcohol completely. 8. Obesity. Patient counseled to lose weight.. 9. Gastrointestinal prophylaxis. Pepcid b.i.d. 10. Tobacco abuse. Patient counseled to quit tobacco completely. 11. Above plans discussed with the patient and all questions answered. Please call with any further questions. cc: Maicol Epperson MD
[2019-04-22] MEDS: M.V.I.-12 10 ML, FOLIC ACID 1 MG, MAGNESIUM SULFATE 1 GM, THIAMINE 100 MG in NS 1,000 ML IV SCH (11:54)
--- NOTE | 2019-04-22 18:58 | PROGRESS NOTE ---
DATE: 04/22/2019 INTERVAL HISTORY: No acute events overnight. SUBJECTIVE: Mr. Villegas is feeling better. Denies new complaints. Denies any vomiting. He did have a bowel movement yesterday. We discussed about liver function tests, waiting for some of the blood tests for chronic liver disease. I answered all of his questions. VITAL SIGNS: Temperature 97.7 degrees, pulse 83, respiratory rate 18, blood pressure 138/80, saturating 100% on room air. I again counseled him and reiterated of the fact that his family members and sexual contacts and close contacts should be discussed about and asked to have testing done for hepatitis A, and should receive hepatitis A vaccine with or without immunoglobulin. PHYSICAL EXAMINATION: General: Not in acute distress. Oral cavity: Moist. Lungs: Air entry bilaterally equal. No wheeze, rhonchi, crackles. Heart: S1, S2. No murmur or gallop. Abdomen: Soft, nontender. Active bowel sounds. Extremities: He has bilateral lower extremity edema. Neurologic: He is alert and oriented x3. LABORATORY DATA: Labs today are suggestive of INR of 1.4. He has a sodium of 131. His potassium is 4.5. His chloride is 98. He continues to have increasing bilirubin. His AST and ALT appear to have plateaued. MICROBIOLOGY: No new microbiological data. IMAGING: No new imaging. ASSESSMENT AND PLAN: 1. Sepsis and acute encephalopathy on presentation, due to right forearm cellulitis, now resolved. I will continue him on Unasyn for another day. 2. Acute hepatitis A, associated with intravenous drug use. His INR is decreasing after vitamin K, which is an encouraging sign. His albumin remains stable at 2.1. Continue to monitor liver function tests. GI team on board and has also ordered ceruloplasmin, antimitochondrial antibody, antinuclear antibody, now alpha-1 antitrypsin antibodies. 3. Suspected cholecystitis, based on ultrasound, though he did not have any cholecystolithiasis. He does not have extreme degree of abdominal pain or any postprandial features to suggest cholecystitis. I will continue to monitor his liver function tests and clinical status. He may need outpatient General Surgery referral. 4. Hyponatremia, hypochloremia, hypokalemia, now resolved. 5. Uncontrolled diabetes mellitus type 2, insulin dependent. Continue current dose of NPH 70/30. His hemoglobin A1c was 11. 6. History of intravenous amphetamine use. He was counseled about stopping. DISPOSITION: Continue to monitor patient inside the hospital. Once his liver function tests stabilize and no further GI intervention is planned, my plan will be to discharge him home. Plan of care was discussed with him. His questions were answered. cc: Jeffrey Macias MD
[2019-04-23] MEDS: HUMALOG SUBQ SCH ×5 (03:46→21:41)
[2019-04-23] MEDS: PEPCID IV SCH ×2 (03:46→11:15)
[2019-04-23] MEDS: UNASYN 1.5 GM/NS 1.5 GM/50 ML IVPB IV SCH ×3 (05:11→17:32)
[2019-04-23] MEDS: ROCEPHIN 2 GM in NS 50 ML IV SCH (05:50)
[2019-04-23] MEDS ORDERED: INSULIN PEN NEEDLES ONE (07:04)
[2019-04-23 07:51] LABS: INR 1.23; PROTIME 15.7 Seconds (11.0-16.0)
[2019-04-23 08:05] LABS: BASO# 0.19 X1000 (0.0-0.2); BASO% 3.2 % (0.0-0.8); EOS# 0.15 X1000 (0.0-0.7); EOS% 2.5 % (0.0-10.0); HEMATOCRIT 42.7 % (42.0-52.0); HEMOGLOBIN 14.1 g/dL (14.0-18.0); IMM GRAN# 0.15 X1000 (0.0-0.04); IMM GRAN% 2.5 % (0.0-0.5); LYMPH# 1.92 X1000 (1.2-3.4); LYMPH% 31.9 % (20.5-51.1); MCH 28.2 PG (27-31); MCV 85.4 FL (81-99); MONO# 0.72 X1000 (0.11-0.59); MPV 12.8 FL (7.4-10.4); NEUT# 2.88 X1000 (1.4-6.5); NEUT% 47.9 % (42.2-75.2); PLT 161 X1000 (130-400); RDW 14.2 % (11.5-14.5); WBC 6.01 X1000 (4.8-10.8)
[2019-04-23 08:12] LABS: AGAP 9; ALB/GLOB RATIO 0.8; ALBUMIN 2.5 g/dL (3.5-5.0); ALKALINE PHOSPHATASE 173 U/L (32-122); BUN 4 mg/dL (8-22); CALCIUM 7.7 mg/dL (8.8-10.2); CHLORIDE 97 mmol/L (98-107); COSMO 265; CREATININE 0.5 mg/dL (0.7-1.2); ESTIMATED GFR > 60; GLUCOSE 123 mg/dL (70-104); GOT 543 U/L (10-34); POTASSIUM 4.2 mmol/L (3.5-5.1); SODIUM 133 mmol/L (136-145); TCO2 27 mmol/L (25-35); TOTAL BILIRUBIN 7.32 mg/dL (0.20-1.00); TOTAL PROTEIN 5.5 g/dL (6.3-8.3)
[2019-04-23 08:27] LABS: GPT 2265 U/L (10-44)
[2019-04-23 08:42] LABS: BANDS 4 % (0-1); EOS 4 % (1-10); LYMPHS 32 % (21-51); SEGS 56 % (42-75)
[2019-04-23] MEDS: MIRALAX PO SCH ×2 (09:38→21:41)
[2019-04-23] MEDS: TUMS PO SCH ×3 (09:38→17:32)
[2019-04-23] MEDS: HUMULIN 70/30 SUBQ SCH (09:38)
[2019-04-23] MEDS: NICODERM PATCH TD SCH (09:38)
--- NOTE | 2019-04-23 11:10 | GASTROENTEROLOGY PROGRESS NOTE ---
DATE: 04/23/2019 SUBJECTIVE: Mr. Villegas is a 49-year-old male resting in bed. He has denied any nausea, vomiting, or abdominal pain. The patient is on a diabetic diet, and he has mentioned tolerating his diet well. OBJECTIVE: Vital Signs: Temperature 97.9 degrees, pulse 81, respirations 20, blood pressure 125/84, oxygen saturation 99% on room air. The patient's weight is 233 pounds. BMI is 33.5 kg/m2. General: He is alert, oriented x3, and in no acute distress. HEENT: Pale conjunctivae. Sclera icterus. PERRL. Neck: Supple. Lungs: Clear to auscultation. Abdomen: Obese, soft, nontender, nondistended. Hypoactive bowel sounds heard in all 4 quadrants. Extremities: No clubbing, no cyanosis. The patient has cellulitis on his right forearm. Neurological: Alert and oriented x3. LABORATORY DATA: WBCs of 6.01, RBC 5, hemoglobin 14.1, hematocrit is 42.7, platelet count is 161,000. Sodium 133, potassium 4.2, chloride 97, carbon dioxide is 27, anion gap 9, BUN 4, creatinine is 0.5, glucose 123, calcium 7.7, total bilirubin 7.32, AST 543, ALT 2265, alkaline phosphatase 173, albumin 2.5. The patient's hepatitis profile has shown that his hepatitis A antibody is reactive. Culture of his wound has showed negative staph. Blood cultures have shown no growth. IMPRESSION AND PLAN: Acute Hepatitis A Sepsis - resolved Acute encephalopathy - resolved Compensated ETOH cirrhosis Thrombocytopenia Alcohol abuse IDDM2 IV drug abuse Tobacco abuse Obesity PLAN: Mr. Villegas is a 49-year-old male with a history of IV drug abuse. GI is following him for his acute hepatitis A and elevated liver enzymes. The patient is currently on antibiotics. He is receiving MVI bag at 150 mL. His diabetes is managed by Humalog on a sliding scale, Humulin 70/30 30 units subcutaneously with breakfast and Humulin 70/30 15 units with supper. The patient is receiving Pepcid 20 mg IV twice a day. The patient is counseled on quitting tobacco use, IV drug use, and has been counseled to lose weight. Patient has been educated on Hepatitis A, to avoid contaminated food or water, it can be transmitted from person to person via fecal oral route, avoid sharing needles, maintain proper hand hygiene at all times, and have safe sex. We will continue to monitor the patient liver enzymes and follow the plan of care per PCP. This plan was discussed with Dr. Stoll. Please call us for any further questions or concerns. Dictated by BRYAN Carcamo for González Stoll MD Physician Attestation I have seen and examined the patient. I have discussed and reviewed the note by Stephanie ADAMS and agree with findings and plan as documented. In brief, Mr. Villegas is a 49 year old man with polysubstance abuse who was admitted with sepsis and encephalopathy (now-resolved) found to have acute hepatitis A and compensated ETOH cirrhosis. Bilirubin is climbing, which is likely lagging behind AST and ALT that have already started to improved. US showed question of acute cholecystitis; however, abdomen is benign, WBC is normal, and patient is tolerating diet. Acute beverly is less likely. Consider stopping antibiotics as coag neg staph in blood culture is likely contaminant. MTDD
[2019-04-23] MEDS: SODIUM CHLORIDE 0.9% INJ SCH (11:15)
[2019-04-23] MEDS: M.V.I.-12 10 ML, FOLIC ACID 1 MG, MAGNESIUM SULFATE 1 GM, THIAMINE 100 MG in NS 1,000 ML IV SCH (11:19)
--- NOTE | 2019-04-23 18:04 | PROGRESS NOTE ---
DATE: 04/23/2019 SUBJECTIVE: The patient is resting comfortably in bed. He states that his abdominal pain has improved. He has not had a bowel movement in a few days. OBJECTIVE: Vital Signs: Temperature 98.2 degrees, blood pressure 145/76, heart rate 81, respirations 18, O2 saturation 96% on room air. General: This is a morbidly obese male lying in bed in no acute distress. Heart: S1, S2 normal. Regular rate and rhythm. Lungs: Equal air entry bilaterally. No wheezing. No rales. No rhonchi. Abdomen: Positive bowel sounds. Soft, nontender, nondistended. Extremities: No edema. No cyanosis. Neurologic: The patient is alert and oriented x3. LABS: White blood cell count 6, hemoglobin 14, hematocrit 42, platelets 161,000. Sodium 133, potassium 4.2, chloride 97, CO2 27, BUN 4, creatinine 0.5, glucose 123. AST 543, ALT 2265, alkaline phosphatase 173, total bilirubin 7, direct bilirubin 6.5. ASSESSMENT AND PLAN: 1. Acute hepatitis A. The patient's liver function tests are slowly improving. Continue with supportive care. 2. Metabolic encephalopathy. Improved. 3. Right forearm cellulitis. Resolved. 4. Insulin-dependent diabetes mellitus, uncontrolled. Continue on Humulin 70/30. 5. Tobacco dependence. The patient has been counseled about smoking cessation. 6. Polysubstance abuse. The patient has been counseled about cessation. 7. Morbid obesity. Aware. 8. Hypertension. Stable. 9. Constipation. We will add Colace and a Dulcolax suppository. 10.Cholelithiasis with distended gallbladder. Monitor. Will refer to surgery as outpatient. cc: Cassi Shah MD [facility]
[2019-04-24] MEDS: COLACE PO SCH ×3 (00:34→22:28)
[2019-04-24] MEDS: DULCOLAX PR SCH ×3 (00:34→22:28)
[2019-04-24] MEDS: PEPCID IV SCH ×2 (00:35→11:22)
[2019-04-24] MEDS: UNASYN 1.5 GM/NS 1.5 GM/50 ML IVPB IV SCH (00:35)
[2019-04-24] MEDS: ROCEPHIN 2 GM in NS 50 ML IV SCH (06:16)
[2019-04-24] MEDS: HUMALOG SUBQ SCH ×4 (06:16→22:28)
[2019-04-24 07:48] LABS: BASO# 0.26 X1000 (0.0-0.2); BASO% 3.6 % (0.0-0.8); EOS# 0.15 X1000 (0.0-0.7); EOS% 2.1 % (0.0-10.0); HEMATOCRIT 39.3 % (42.0-52.0); HEMOGLOBIN 13.1 g/dL (14.0-18.0); IMM GRAN# 0.14 X1000 (0.0-0.04); IMM GRAN% 1.9 % (0.0-0.5); LYMPH# 2.54 X1000 (1.2-3.4); LYMPH% 35.1 % (20.5-51.1); MCH 28.3 PG (27-31); MCHC 33.3 g/dL (33-37); MCV 84.9 FL (81-99); MONO# 0.97 X1000 (0.11-0.59); MONO% 13.4 % (1.7-9.3); MPV 12.4 FL (7.4-10.4); NEUT# 3.18 X1000 (1.4-6.5); NEUT% 43.9 % (42.2-75.2); PLT 170 X1000 (130-400); RBC 4.63 XMIL (4.7-6.1); RDW 14.3 % (11.5-14.5); WBC 7.24 X1000 (4.8-10.8)
[2019-04-24 08:31] LABS: BANDS 6 % (0-1); EOS 2 % (1-10); MONO 18 % (1-9); SEGS 34 % (42-75)
[2019-04-24 08:32] LABS: ATYPICAL LYMPH 10 %
[2019-04-24 08:33] LABS: LARGE PLATELETS 1+; LYMPHS 28 % (21-51)
[2019-04-24] MEDS: MIRALAX PO SCH ×2 (08:39→22:29)
[2019-04-24] MEDS: NICODERM PATCH TD SCH (08:39)
[2019-04-24] MEDS: TUMS PO SCH ×3 (08:39→17:01)
[2019-04-24] MEDS: HUMULIN 70/30 SUBQ SCH ×3 (08:40→17:03)
[2019-04-24 08:52] LABS: AGAP 8; ALB/GLOB RATIO 0.6; ALBUMIN 2.2 g/dL (3.5-5.0); ALKALINE PHOSPHATASE 160 U/L (32-122); BUN 4 mg/dL (8-22); CHLORIDE 102 mmol/L (98-107); COSMO 265; CREATININE 0.3 mg/dL (0.7-1.2); ESTIMATED GFR > 60; GLUCOSE 130 mg/dL (70-104); GOT 217 U/L (10-34); GPT 1442 U/L (10-44); POTASSIUM 3.8 mmol/L (3.5-5.1); SODIUM 133 mmol/L (136-145); TCO2 23 mmol/L (25-35); TOTAL PROTEIN 5.8 g/dL (6.3-8.3)
[2019-04-24] MEDS: SODIUM CHLORIDE 0.9% INJ SCH (11:22)
[2019-04-24] MEDS: M.V.I.-12 10 ML, FOLIC ACID 1 MG, MAGNESIUM SULFATE 1 GM, THIAMINE 100 MG in NS 1,000 ML IV SCH (13:01)
--- NOTE | 2019-04-24 16:01 | GASTROENTEROLOGY PROGRESS NOTE ---
DATE: 04/24/2019 SUBJECTIVE: Mr. Villegas is a 49-year-old male resting in bed. The patient has denied any nausea, vomiting, or abdominal pain today. The patient has been able to tolerate his diet. He denied having any bowel movements today. OBJECTIVE: Vital Signs: Temperature 98.3 degrees, pulse 83, respirations 18, blood pressure 135/72, oxygen saturation 96% on room air. His weight is 233 pounds. BMI is 33.5 kg/m2. General: He is alert, oriented x3, and in no acute distress. HEENT: Pale conjunctivae, Sclera icterus. PERRL. Neck: Supple. Lungs: Clear to auscultation. Abdomen: Obese, soft, nontender. Hypoactive bowel sounds heard in all 4 quadrants. Extremities: No clubbing, no cyanosis. Generalized edema in the lower extremities. The patient has cellulitis on his right forearm. Neurologic: Alert and oriented x3. LABORATORY DATA: WBC is 7.2 followup WBC 4.6, hemoglobin 13.1, hematocrit 39.3, platelets 170. Sodium 133, potassium 3.8, chloride 102, carbon dioxide 23, anion gap 8, BUN 4, creatinine 0.3, glucose 130, calcium 8.0. Total bilirubin is 7.50, AST 217, ALT 1442, alkaline phosphatase is 150. The patient's SAMM screen with reflex antibodies was negative. IMPRESSION AND PLAN: Acute hepatitis A Constipation Sepsis - resolved Compensated alcoholic cirrhosis Thrombocytopenia - resolved Alcohol abuse IV drug abuse Tobacco abuse Gallbladder polyps PLAN: Mr. Villegas is a 49-year-old male with a history of IV drug abuse. GI is following him for his acute hepatitis A and elevated liver enzymes. The patient is tolerating his diet well. He has denied any abdominal pain. The patient is on a bowel regimen 17 mg p.o. twice a day, Colace 100 mg p.o. twice a day, and Dulcolax 10 mg p.o. twice a day. The patient's liver enzymes have been trending downward. Patient has been counselled on giving up alcohol, stop doing IV drugs and smoking cessation. We will continue to provide conservative care to the patient. This plan was discussed with Dr. Stoll. Please call us for any further questions or concerns. Dictated by BRYAN Carcamo for González Stoll MD Physician Attestation I have seen and examined the patient. I have discussed and reviewed the note by Stephanie ADAMS and agree with findings and plan as documented. In brief, Mr. Villegas is a 49 year old man with polysubstance abuse who was admitted with sepsis and encephalopathy (now-resolved) found to have acute hepatitis A and compensated ETOH cirrhosis. Bilirubin is climbing, which is likely lagging behind AST and ALT that have already started to improved. US showed question of acute cholecystitis; however, abdomen is benign, WBC is normal, and patient is tolerating diet. He denies any abdominal pain. US was negative for biliary dilation. Patient can be discharged from GI perspective with close follow-up in 2-4 weeks. Will sign off. MTDD
--- NOTE | 2019-04-24 20:49 | PROGRESS NOTE ---
DATE: 04/24/2019 SUBJECTIVE: The patient is resting comfortably in bed. He states that he is eating well and having bowel movements. OBJECTIVE: Vital Signs: Temperature 97.8 degrees, blood pressure 131/74, heart rate 80, respirations 18, O2 saturation is 98% on room air. General: Morbidly obese male, sitting up in bed, in no acute distress. Heart: S1, S2 normal. Regular rate and rhythm. Lungs: Clear to auscultation bilaterally. Abdomen: Positive bowel sounds. Soft, obese, nontender, nondistended. Extremities: No edema. No cyanosis. Neurologic: Alert and oriented x4. LABORATORY DATA: White blood cell count 7.2, hemoglobin 13, hematocrit 39, platelets 170,000. Sodium 133, potassium 3.8, BUN 4, creatinine 0.3, glucose 130. Total bilirubin 7.5, AST 217, ALT 1442, alkaline phosphatase 160, albumin 2.2. ASSESSMENT AND PLAN: 1. Acute hepatitis A. Continue with supportive care. The liver function tests are slowly improving. 2. Metabolic encephalopathy. Resolved. 3. Right forearm cellulitis. Resolved. 4. Cholelithiasis with a distended gallbladder. Monitor. We will refer the patient to be seen by the general surgeon as outpatient. 5. Morbid obesity. Aware. 6. Polysubstance abuse. The patient has been counseled about cessation. 7. Tobacco dependence. The patient has been counseled about smoking cessation. 8. Insulin-dependent diabetes mellitus. Continue on Humulin 70/30. 9. Constipation. Improved. Continue with laxative therapy. 10. We will plan to discharge the patient home once okay with GI. cc: Cassi Shah MD [facility]ITAL[facility]
[2019-04-25] MEDS: HUMALOG SUBQ SCH ×4 (07:29→21:36)
[2019-04-25 08:08] LABS: BASO# 0.28 X1000 (0.0-0.2); BASO% 2.8 % (0.0-0.8); EOS# 0.09 X1000 (0.0-0.7); EOS% 0.9 % (0.0-10.0); HEMOGLOBIN 13.4 g/dL (14.0-18.0); IMM GRAN# 0.19 X1000 (0.0-0.04); IMM GRAN% 1.9 % (0.0-0.5); LYMPH# 3.44 X1000 (1.2-3.4); LYMPH% 34.2 % (20.5-51.1); MCH 28.2 PG (27-31); MCHC 33.5 g/dL (33-37); MCV 84.2 FL (81-99); MONO# 1.35 X1000 (0.11-0.59); MONO% 13.4 % (1.7-9.3); MPV 12.8 FL (7.4-10.4); NEUT# 4.71 X1000 (1.4-6.5); NEUT% 46.8 % (42.2-75.2); PLT 212 X1000 (130-400); RBC 4.75 XMIL (4.7-6.1); RDW 14.7 % (11.5-14.5); WBC 10.06 X1000 (4.8-10.8)
[2019-04-25 08:43] LABS: AGAP 7; ALB/GLOB RATIO 0.6; ALBUMIN 2.5 g/dL (3.5-5.0); ALKALINE PHOSPHATASE 169 U/L (32-122); BUN 5 mg/dL (8-22); CALCIUM 8.2 mg/dL (8.8-10.2); CHLORIDE 99 mmol/L (98-107); COSMO 264; CREATININE 0.4 mg/dL (0.7-1.2); ESTIMATED GFR > 60; GLUCOSE 100 mg/dL (70-104); GOT 159 U/L (10-34); POTASSIUM 3.7 mmol/L (3.5-5.1); SODIUM 133 mmol/L (136-145); TCO2 27 mmol/L (25-35); TOTAL BILIRUBIN 8.82 mg/dL (0.20-1.00); TOTAL PROTEIN 6.5 g/dL (6.3-8.3)
[2019-04-25 08:54] LABS: GPT 1033 U/L (10-44)
[2019-04-25] MEDS: HUMULIN 70/30 SUBQ SCH ×2 (08:59→16:38)
[2019-04-25] MEDS: COLACE PO SCH ×2 (09:08→21:36)
[2019-04-25] MEDS: DULCOLAX PR SCH ×2 (09:08→21:36)
[2019-04-25] MEDS: PEPCID IV SCH (09:09)
[2019-04-25] MEDS: NICODERM PATCH TD SCH (09:09)
[2019-04-25] MEDS: TUMS PO SCH ×3 (09:09→16:37)
[2019-04-25] MEDS: SODIUM CHLORIDE 0.9% INJ SCH (09:09)
[2019-04-25] MEDS: MIRALAX PO SCH ×2 (09:09→21:36)
[2019-04-25] MEDS: M.V.I.-12 10 ML, FOLIC ACID 1 MG, MAGNESIUM SULFATE 1 GM, THIAMINE 100 MG in NS 1,000 ML IV SCH (12:04)
--- NOTE | 2019-04-25 14:39 | PROGRESS NOTE ---
DATE: 04/25/2019 SUBJECTIVE: The patient is resting comfortably in bed. He states that he feels better today. OBJECTIVE: Vital Signs: Temperature 97 degrees, blood pressure 144/81, heart rate 82, respirations 18, O2 saturations 100% on room air. General: This is an elderly male lying in bed in no acute distress. Heart: S1, S2 normal. Regular rate and rhythm. Lungs: Equal air entry bilaterally. No wheezing. No rales. Abdomen: Positive bowel sounds. Soft, nontender, nondistended. Extremities: No edema, no cyanosis. Neurologic: The patient is alert and oriented x3. LABS: White blood cell count 10, hemoglobin 13, hematocrit 40, platelets 212. Sodium 133, potassium 3.7, chloride 99, CO2 27. BUN 5, creatinine 0.4, glucose 100, total bilirubin 8.8. AST 159, ALT 1033, alkaline phosphatase 169, albumin 2.5. ASSESSMENT AND PLAN: 1. Acute hepatitis A. The patient is improving clinically. His liver function studies continue to improve daily. Continue with supportive care. The patient has been counseled about risk factors. 2. Cholelithiasis with a distended gallbladder. The patient is currently asymptomatic. We will refer the patient to General Surgery as outpatient to potentially arrange for an elective cholecystectomy. 3. Suspected liver cirrhosis. The patient will follow up with Gastroenterology as outpatient to discuss treatment. 4. Morbid obesity. Aware. 5. Insulin-dependent diabetes mellitus. Continue on Humulin 70/30. 6. Polysubstance abuse. The patient has been counseled about cessation. 7. Tobacco dependence. The patient has been counseled about smoking cessation. 8. Disposition. We will likely plan to discharge the patient home tomorrow. cc: Cassi Shah MD
[2019-04-26] MEDS: HUMALOG SUBQ SCH ×2 (06:48→11:26)
[2019-04-26] MEDS ORDERED: PRILOSEC PO SCH (07:00)
[2019-04-26] MEDS: TUMS PO SCH ×2 (08:15→13:23)
[2019-04-26] MEDS: COLACE PO SCH (08:15)
[2019-04-26] MEDS: HUMULIN 70/30 SUBQ SCH (08:16)
[2019-04-26 08:37] LABS: AGAP 9; ALB/GLOB RATIO 0.7; ALBUMIN 2.4 g/dL (3.5-5.0); ALKALINE PHOSPHATASE 146 U/L (32-122); BUN 5 mg/dL (8-22); CALCIUM 7.9 mg/dL (8.8-10.2); CHLORIDE 100 mmol/L (98-107); COSMO 273; CREATININE 0.5 mg/dL (0.7-1.2); ESTIMATED GFR > 60; GLUCOSE 276 mg/dL (70-104); GOT 95 U/L (10-34); GPT 644 U/L (10-44); POTASSIUM 3.8 mmol/L (3.5-5.1); SODIUM 133 mmol/L (136-145); TCO2 24 mmol/L (25-35); TOTAL BILIRUBIN 9.13 mg/dL (0.20-1.00); TOTAL PROTEIN 5.9 g/dL (6.3-8.3)
[2019-04-26] MEDS ORDERED: CENTRUM SILVER PO SCH (09:00)
[2019-04-26] MEDS: MIRALAX PO SCH (10:27)
[2019-04-26] MEDS: DULCOLAX PR SCH (10:27)
[2019-04-26] MEDS: NICODERM PATCH TD SCH (10:28)
[2019-04-26 11:44] VITALS: BP 128/76
--- NOTE | 2019-05-01 13:35 | DISCHARGE SUMMARY ---
ADMISSION DATE: 04/19/2019 DISCHARGE DATE: 04/26/2019 FINAL DISCHARGE DIAGNOSES: 1. Acute hepatitis A with transaminitis and hyperbilirubinemia 2. Cholelithiasis with a distended gallbladder. 3. Suspected liver cirrhosis. 4. Morbid obesity. 5. Polysubstance abuse. 6. Tobacco dependence. 7. Insulin-dependent diabetes mellitus. CONSULTATIONS: 1. GI consultation with Maicol Epperson MD. IMAGIN. Chest x-ray performed on 04/18/2028, which revealed no acute abnormality. 2. Right forearm x-ray which revealed no acute bony injury. 3. CT of the abdomen and pelvis performed on 04/19/2019, which revealed hepatic steatosis versus cirrhosis with splenomegaly. 4. Echocardiogram which revealed an EF of 62%. 5. Pulmonary arteriogram which revealed no evidence of pulmonary embolism. 6. Abdominal ultrasound which revealed gallbladder wall thickening as well as multiple stones in the gallbladder. HOSPITAL COURSE: Mr. Villegas is a 49-year-old male with a history of polysubstance abuse, tobacco abuse, who presented to the ER with a chief complaint of fever and confusion. On admission, the patient was noted to have an AST of 5293 with an ALT of 3064 with an alkaline phosphatase of 260 and a bilirubin of 2.7. The patient was admitted to the hospitalist service. IV fluids were initiated further. The abdominal ultrasound was done that could not exclude the possibility of cholecystitis. Also, a hepatitis profile was sent off. GI was consulted. The patient was treated with Unasyn pending blood culture results. Over the course of the hospitalization, the patient's elevated LFTs improved. The patient was also counseled extensively about the importance of stopping his IV drug use. The patient's bilirubin did continue to rise, but this was discussed with the GI specialist who stated that it would eventually peak and start coming down as well like the liver function tests were doing. The patient continued to improve clinically and was cleared for discharge home on 04/26/2019. DISCHARGE MEDICATIONS: 1. Humulin 70/30 15 units subcutaneous with dinner. 2. Humulin 70/30 30 units subcutaneous with breakfast. 3. NicoDerm patch 21 mg transdermal daily. 4. Multivitamin 1 tab oral daily. 5. Prilosec 40 mg p.o. daily. DISCHARGE DIET: 1800 ADA diet. ACTIVITY: As tolerated. FOLLOWUP INSTRUCTIONS: 1. The patient will need to follow up with Dr. Yates in 1 week as a new patient to discuss a possible cholecystectomy. 2. The patient will need to follow up with Dr. Stoll in 2 weeks. cc: Cassi Shah MD MTDD
== END 2019-04-26 15:23 | disposition home or self-care (01) | DRG 442 ==
LOC: ED 22:10 → SUATTDRO 04-19 03:15 → 3N 04-19 03:15
PROVIDERS: ATTEND Internal Medicine